=== PATIENT | female | born 1970 | race Caucasian/White ===

== ENCOUNTER 2016-07-11 09:23 | Emergency (ER) | payer OTHER ==
--- NOTE | 2016-07-11 09:34 | ED Physician Documentation ---
Low Back Pain - HISTORIAN Historian: patient - HPI Chief Complaint: Low Back Pain/ Injury History: history of chronic pain: Onset: hours Worsened By:: nothing Relieved By: nothing Further Comments: yes (45 year old female patient presents with back pain. Patient states she bent over at the kitchen table and felt sudden back pain. Took tylenol with no improvement. Denies fall, injury or heavy lifting.) - ROS CONST: no problems CVS/RESP: none EYES/ENT: none MS/SKIN/LYMPH: none Neuro/Psych: none GI/: denies: abdominal pain - PAST HX Past History: back pain Other History: diabetes Type 2, hypertension Allergies/Adverse Reactions: Allergies Allergy/AdvReac Type Severity Reaction Status Date / Time No Known Allergies Allergy Verified 07/11/16 09:38 Home Medications: Ambulatory Orders Medication Instructions Recorded Glimepiride [Glimepiride] 1 mg PO DAILY 08/22/15 Hydrochlorothiazide 25 mg PO DAILY 08/22/15 [Hydrochlorothiazide] Lisinopril [Prinivil] 10 mg PO DAILY 08/22/15 Metformin HCl [Glucophage XR] 1,000 mg PO BID 08/22/15 Nortriptyline HCl [Nortriptyline 10 mg PO TID 08/22/15 HCl] tiZANidine HCL [Zanaflex] 4 mg PO Q6 PRN 08/22/15 Baclofen [Lioresal] 10 mg PO QID PRN #30 tablet 07/11/16 Ketorolac Tromethamine [Toradol] 10 mg PO TID #15 tablet 07/11/16 - SOCIAL HX Smoking History: cigarettes - FAMILY HX Family History: none - VITAL SIGNS Vital Signs: Vital Signs Temp Pulse Resp BP Pulse Ox 98.1 F 102 H 18 116/88 96 07/11/16 09:31 07/11/16 09:51 07/11/16 09:51 07/11/16 09:51 07/11/16 09:51 - REVIEWED ASSESSMENTS Nursing Assessment Reviewed: Yes Vitals Reviewed: Yes ED Results Lab/Radiology - Orders Orders: ED Orders Category Date Time Status Ketorolac Tromethamine [Toradol] Med 07/11/16 09:40 Discontinued 60 mg IM NOW ONE Orphenadrine Citrate [Norflex] Med 07/11/16 09:40 Discontinued 60 mg IM NOW ONE Low Back Pain/Injury - Physical Exam General Appearance: mild distress EENT: eye inspection normal, KRIS Resp/CVS: chest non-tender, breath sounds nml, heart sounds nml, no resp. distress, lungs clear, reg. rate & rhythm Abdomen: non-tender, no organomegaly, no pulsatile mass Back: painless ROM, other (lumbar pain with palpation). No: vertebral point- tendernes Straight Leg Raising: Negative Left, Negative Right Neuro/Psych: oriented x3, motor nml, sensation nml, bilat. 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 You may use Tylenol every 4hour as needed for pain. Limit your dose to less than 4 G per day. Do not take ibuprofen, aleve, naproxen or any other NSAID while you are on toradol. You may want to try massage, biofreeze, sanford whitfield or aspercream community health nurse supervisor 2 prescriptions at the pharmacy today Home Medications: Ambulatory Orders Glimepiride [Glimepiride] 1 mg PO DAILY 08/22/15 Hydrochlorothiazide [Hydrochlorothiazide] 25 mg PO DAILY 08/22/15 Lisinopril [Prinivil] 10 mg PO DAILY 08/22/15 Metformin HCl [Glucophage XR] 1,000 mg PO BID 08/22/15 Nortriptyline HCl [Nortriptyline HCl] 10 mg PO TID 08/22/15 tiZANidine HCL [Zanaflex] 4 mg PO Q6 PRN 08/22/15 Baclofen [Lioresal] 10 mg PO QID PRN #30 tablet 07/11/16 Ketorolac Tromethamine [Toradol] 10 mg PO TID #15 tablet 07/11/16 Condition: Stable Disposition: 01 HOME, SELF-CARE Decision to Admit: NO Decision Time: 09:43
[2016-07-11 09:38] VITALS: BP 116/88
[2016-07-11] MEDS ORDERED: ORPHENADRINE CITRATE 60 MG/2ML IM ONE (09:40)
[2016-07-11] MEDS ORDERED: KETOROLAC TROMETHAMINE 60 MG/2 ML VIAL IM ONE (09:40)
== END 2016-07-11 09:51 | disposition home or self-care (01) ==
LOC: ED 09:23
DX: M54.5 Low back pain (principal)
CPT/HCPCS: 96372; 99283; J1885; J2360

== ENCOUNTER 2016-08-27 01:46 | Emergency (ER) | payer OTHER ==
--- NOTE | 2016-08-27 02:25 | ED Physician Documentation ---
General Adult - HISTORIAN Historian: patient - HPI Stated Complaint: cough, congestion Chief Complaint: General Adult Additional Information: Cough for hours. Has taken Mucinex. HX pneumonia or bronchitis nearly every year. Second hand smoke exposure. No fever. - ROS CONST: no problems - PAST HX Past History: none Surgeries/Procedures: other (endometrial ablation) Allergies/Adverse Reactions: Allergies Allergy/AdvReac Type Severity Reaction Status Date / Time No Known Allergies Allergy Verified 08/27/16 02:06 Home Medications: Ambulatory Orders Medication Instructions Recorded Glimepiride [Glimepiride] 1 mg PO DAILY 08/22/15 Lisinopril [Prinivil] 10 mg PO DAILY 08/22/15 Metformin HCl [Glucophage XR] 1,000 mg PO BID 08/22/15 Furosemide [Lasix] 20 mg PO DAILY 08/27/16 Hydroxyzine HCl [Atarax] 25 mg PO BID 08/27/16 predniSONE [Deltasone] 20 mg PO QD #5 tablet 08/27/16 - SOCIAL HX Smoking History: secondhand - FAMILY HX Family History: No (no signif) - VITAL SIGNS Vital Signs: Vital Signs Temp Pulse Resp BP Pulse Ox 118 H 20 112/75 95 08/27/16 02:00 08/27/16 02:00 08/27/16 02:00 08/27/16 02:00 - REVIEWED ASSESSMENTS Nursing Assessment Reviewed: Yes Vitals Reviewed: Yes Progress - Progress Progress: Chest - two views Clinical history: Cough for 2 days. Findings: Examination of the chest in PA and lateral views with no prior films for comparison demonstrates lungs to be clear. Cardiovascular and mediastinal silhouettes are within normal limits. The bony thorax is intact. Impression: 1. No active disease. Electronically signed on August 27, 2016 2:41:29 AM CDT by: Kyle Fallon ED Results Lab/Radiology - Orders Orders: ED Orders Category Date Time Status CHEST 2 VIEW [CHEST P.A.&LAT 2 VIEWS] [RAD] Stat Exams 08/27/16 Ordered General Adult Physical Exam - PHYSICAL EXAM GENERAL APPEARANCE: mild distress EENT: eye inspection normal, ENT inspection normal, pharynx normal, TM's nml NECK: normal inspection, supple RESPIRATORY: no resp distress, breath sounds normal CVS: reg rate & rhythm, heart sounds normal ABDOMEN: other (obese) BACK: normal inspection SKIN: warm/dry, normal color EXTREMITIES: no evidence of injury NEURO: CN's nml as tested, motor nml, sensation nml Discharge Clincal Impression: Acute bronchitis Qualifiers: Bronchitis organism: unspecified organism Qualified Code(s): J20.9 - Acute bronchitis, unspecified Prescriptions: predniSONE [Deltasone] 20 mg PO QD #5 tablet Referrals: Albino Sena [Primary Care Provider] - 2 Days Additional Instructions: Drink plenty of water. Avoid all smoke. Home Medications: Ambulatory Orders Glimepiride [Glimepiride] 1 mg PO DAILY 08/22/15 Lisinopril [Prinivil] 10 mg PO DAILY 08/22/15 Metformin HCl [Glucophage XR] 1,000 mg PO BID 08/22/15 Furosemide [Lasix] 20 mg PO DAILY 08/27/16 Hydroxyzine HCl [Atarax] 25 mg PO BID 08/27/16 predniSONE [Deltasone] 20 mg PO QD #5 tablet 08/27/16 Condition: Fair Disposition: 01 HOME, SELF-CARE Decision to Admit: NO Decision Time: 03:30
[2016-08-27] MEDS ORDERED: predniSONE 10 MG TABLET PO ONE (02:56)
[2016-08-27 03:12] VITALS: BP 121/84
--- NOTE | 2016-08-27 06:39 | Diagnostic Imaging Report ---
CHECO JOSHI - CLAIRE [facility] [address] [facility] [address] [address] Report Submission Date: August 27, 2016 2:41:29 AM CDT Patient Study Name: JANE SORENSEN Date: August 27, 2016 2:27:10 AM CDT Modality Type: CR Gender: F Description: CHEST : 68 Institution: [facility] Physician: CHECO JOSHI - CLAIRE Chest - two views Clinical history: Cough for 2 days. Findings: Examination of the chest in PA and lateral views with no prior films for comparison demonstrates lungs to be clear. Cardiovascular and mediastinal silhouettes are within normal limits. The bony thorax is intact. Impression: 1. No active disease. Electronically signed on August 27, 2016 2:41:29 AM CDT by: Kyle MOSLEY
== END 2016-08-27 03:00 | disposition home or self-care (01) ==
LOC: ED 01:46
DX: J20.9 Acute bronchitis, unspecified (principal)
CPT/HCPCS: 71020; J7512; 99283

== ENCOUNTER 2017-01-02 05:54 | Emergency (ER) | payer OTHER ==
[2017-01-02] MEDS ORDERED: 0.9 % SODIUM CHLORIDE 1,000 ML IV ONE (06:55)
[2017-01-02] MEDS: 0.9 % SODIUM CHLORIDE 1,000 ML IV ONE (06:59)
[2017-01-02] MEDS: ONDANSETRON HCL/PF 4 MG/ 2ML VIAL IVP ONE (07:00)
[2017-01-02 08:11] LABS: BASOPHILS % 1.4 (0.0-1.5); EOSINOPHILS % 1.9 % (0.0-6.8); MEAN CORPUSCULAR HEMOGLOBIN 28.6 pg (28.0-34.0); MEAN CORPUSCULAR VOLUME 85.9 fl (80.0-100.0); MONOCYTES % 5.2 % (0.0-11.0)
[2017-01-02 08:20] LABS: APPEARANCE,URINE Clear (CLEAR); COLOR,URINE Yellow (YELLOW); OCCULT BLOOD,URINE Negative (NEGATIVE); PH URINE 5.5 (5.0 - 8.0); UROBILINOGEN URINE 0.2 Eu (0.2-1.0)
[2017-01-02 08:22] LABS: eGFR (African) > 60; eGFR (Non-African) > 60
--- NOTE | 2017-01-02 08:44 | ED Physician Documentation ---
General Adult - HISTORIAN Historian: patient - HPI Stated Complaint: Nausea/Vomiting/Diarrhea Chief Complaint: General Adult Further Comments: yes (46 year old female patient presents with complaints of nausea, vomiting and diarrhea which started around 0300. Denies fever or abdominal pain.) - ROS CONST: no problems EYES/ENT: none CVS/RESP: none GI/: vomiting, nausea, diarrhea. denies: abdominal pain, problems urinating MS/SKIN/LYMPH: none NEURO/PSYCH: denies: headache, difficulty walking, difficulty with speech - PAST HX Past History: hypertension, renal disease Other History: diabetes Type 2 Surgeries/Procedures: other (nephrectomy) Allergies/Adverse Reactions: Allergies Allergy/AdvReac Type Severity Reaction Status Date / Time No Known Allergies Allergy Verified 01/02/17 06:09 Home Medications: Ambulatory Orders Medication Instructions Recorded Glimepiride [Glimepiride] 1 mg PO DAILY 08/22/15 Lisinopril [Prinivil] 10 mg PO DAILY 08/22/15 Metformin HCl [Glucophage XR] 1,000 mg PO BID 08/22/15 Furosemide [Lasix] 20 mg PO DAILY 08/27/16 Hydroxyzine HCl [Atarax] 25 mg PO BID 08/27/16 - SOCIAL HX Smoking History: non-smoker - FAMILY HX Family History: No - VITAL SIGNS Vital Signs: Vital Signs Temp Pulse Resp BP Pulse Ox 99 F 79 18 97/51 95 01/02/17 05:55 01/02/17 05:55 01/02/17 05:55 01/02/17 05:55 01/02/17 05:55 - REVIEWED ASSESSMENTS Nursing Assessment Reviewed: Yes Vitals Reviewed: Yes Progress - Progress Progress: Reviewed lab and xray findings with patient. Recommended clear liquid and ADAT. Rx for anti-nausa medication. UA - contaminated, cancel micro/culture ED Results Lab/Radiology - Lab Results Lab Results: Lab Results 01/02/17 01/02/17 07:03 07:03 WBC 7.60 K/ul K/ul (4.00-12.00) RBC 4.99 M/ul M/ul (3.90-5.20) Hgb 14.3 g/dL g/dL (12.0-16.0) Hct 42.9 % % (34.5-46.5) MCV 85.9 fl fl (80.0-100.0) MCH 28.6 pg pg (28.0-34.0) MCHC 33.3 g/dL g/dL (30.0-36.0) RDW 13.7 % % (11.3-14.3) Plt Count 310 K/mm3 K/mm3 (130-400) Neut % (Auto) 66.0 % % (39.0-79.0) Lymph % (Auto) 24.3 % % (16.0-50.0) Menard % (Auto) 5.2 % % (0.0-11.0) Eos % (Auto) 1.9 % % (0.0-6.8) Baso % (Auto) 1.4 (0.0-1.5) Neut # (Auto) 5.0 # k/uL # k/uL (1.4-7.7) Lymph # (Auto) 1.8 # k/uL # k/uL (0.6-4.0) Menard # (Auto) 0.4 # k/uL # k/uL (0.0-0.9) Eos # (Auto) 0.2 # k/uL # k/uL (0.0-0.6) Baso # (Auto) 0.1 # k/uL # k/uL (0.0-0.5) Reactive Lymphs % 1.2 % % (0.0-5.0) Reactive Lymphs # 0.1 # k/uL # k/uL (0.0-0.8) Sodium 135 mmol/L L mmol/L (136-145) Potassium 3.8 mmol/L mmol/L (3.5-5.0) Chloride 102 mmol/L mmol/L (98-110) Carbon Dioxide 26 mmol/L mmol/L (20-32) BUN 14 mg/dL mg/dL (10-26) Creatinine 0.6 mg/dL mg/dL (0.4-1.5) Estimated Creat Clear 279 Est GFR ( Amer) > 60 (60 - ) Est GFR (Non-Af Amer) > 60 (60 - ) Glucose 280 mg/dL H mg/dL (70-99) Calcium 9.4 mg/dL mg/dL (8.5-10.5) Total Bilirubin 0.9 mg/dL mg/dL (0.2-1.2) AST 18 U/L U/L (0-41) ALT 16 U/L U/L (0-45) Alkaline Phosphatase 123 U/L H U/L (46-116) Total Protein 7.5 g/dL g/dL (6.0-8.5) Albumin 4.4 g/dL g/dL (3.0-5.5) - Orders Orders: ED Orders Category Date Time Status Place IV Lock 1T Care 01/02/17 07:03 Active CBC/PLATELET/DIFF Stat Lab 01/02/17 07:03 Completed CMP Stat Lab 01/02/17 07:03 Completed UA W/MICRO IF INDICATED Stat Lab 01/02/17 07:03 Received 0.9 % Sodium Chloride [Normal Saline] 1,000 ml Med 01/02/17 06:55 Discontinued IV .STK-MED 0.9 % Sodium Chloride [Normal Saline] 1,000 ml Med 01/02/17 07:03 Discontinued IV NOW Ondansetron HCl/Pf [Zofran 4 mg/2 ml] Med 01/02/17 06:53 Discontinued 4 mg IVP NOW ONE General Adult Physical Exam - PHYSICAL EXAM GENERAL APPEARANCE: mild distress EENT: eye inspection normal, no signs of dehydration, KRIS RESPIRATORY: no resp distress, chest non-tender, breath sounds normal CVS: reg rate & rhythm, heart sounds normal, equal pulses, no murmur, no gallop , PMI nml, no JVD, no friction rub, 24 ABDOMEN: soft, no organomegaly, normal bowel sounds, no abdominal bruit, no distension, non-tender, other (morbid obesity). 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 NEURO: oriented X3, CN's nml as tested, motor nml, sensation nml, mood/affect nml Discharge Clincal Impression: Nausea & vomiting Qualifiers: Vomiting type: unspecified Vomiting Intractability: non-intractable Qualified Code(s): R11.2 - Nausea with vomiting, unspecified Referrals: Albino Sena [Primary Care Provider] - 2 Days Additional Instructions: Diet: Clear liquids Sprite/7-up Juices apple, white grape Gatorade/Powerade Jello Popsicles When tolerating clear liquids, advance to bland/brat diet - such as crackers, rice, Bananas, apples/applesauce or toast Return to the emergency department or call your doctor, if you are having severe abdominal pain, fever >101.0, or if there is blood in the vomit or diarrhea, or you cannot keep down liquids or solid food. Fever: Use Tylenol or Ibuprofen as needed per package directions Tylenol 500mg po q4h prn pain Ibuprofen 800mg po TID prn pain - do not take for more than 4 days. A prescription for nausea medication has been sent to the pharmacy. Condition: Stable Disposition: 01 HOME, SELF-CARE Decision to Admit: NO Decision Time: 08:43
[2017-01-02 09:10] VITALS: BP 112/75
== END 2017-01-02 09:07 | disposition home or self-care (01) ==
LOC: ED 05:54
DX: R11.2 Nausea with vomiting, unspecified (principal)
CPT/HCPCS: 80053; 81002; 85025; J2405; J7030; 96361; 96374; 99283; S1016

== ENCOUNTER 2017-07-16 13:27 | Emergency (ER) | payer OTHER ==
--- NOTE | 2017-07-16 13:58 | ED Physician Documentation ---
General Adult - HISTORIAN Historian: patient - HPI Chief Complaint: Dyspnea Additional Information: 2 day history of cough, occasional productive of some green phlegm, no blood noted. Has some rattling with coughing, no wheezing noted. No hsitory of astham/ COPD. Does have a sore throat. Having some clear nasal drainage. Has had a fever up to 101.2 Mild chills noted. Timing: still present - ROS CONST: fever, chills - PAST HX Past History: kidney stones Other History: diabetes Type 2 (BS in the mid 200 range, normal for patient) Surgeries/Procedures: , other (appendectomy, right nephrectomy due to kidney stones) Allergies/Adverse Reactions: Allergies Allergy/AdvReac Type Severity Reaction Status Date / Time No Known Allergies Allergy Verified 07/16/17 14:01 Home Medications: Ambulatory Orders Medication Instructions Recorded Metformin HCl [Glucophage XR] 1,000 mg PO BID 08/22/15 Furosemide [Lasix] 20 mg PO DAILY 08/27/16 Azithromycin [Zithromax] 250 mg PO DIRECTED #6 tablet 07/16/17 Benzonatate [Tessalon] 100 mg PO TID PRN #20 capsule 07/16/17 Insulin Lispro [Humalog Kwikpen 42 units SQ HS 07/16/17 U-100] - SOCIAL HX Smoking History: non-smoker Alcohol Use: none Drug Use: none - FAMILY HX Family History: No - VITAL SIGNS Vital Signs: Vital Signs Temp Pulse Resp BP Pulse Ox 112/75 01/02/17 09:08 - REVIEWED ASSESSMENTS Nursing Assessment Reviewed: Yes Vitals Reviewed: Yes Progress - Progress Progress: 1558 Patient states that she still feels SOB some. VS have been stable. D Dimer elevated. Will get CT scan to r/o PE. Will bolus with 500cc NS priro to giving dye to make sure she is well hydrated. BUN and Creatinine normal. ED Results Lab/Radiology - Radiology Radiology Impressions: Examination: PA and lateral chest. History: Evaluate lung dahl. DYSPNEA AND COUGH X 2 DAYS (Hx) Comparison exam: None provided. Findings: PA lateral chest demonstrate a normal cardiac and mediastinal silhouette. Mild interstitial fullness left lung base. No other focal infiltrate. No blunting of the costophrenic margins. Nonarticular degenerative changes. Impression: Likely left base parenchymal scarring. No acute appearing pulmonary process Examination: CT chest pulmonary embolism History: PE PROTOCAL; HX SHORTNESS OF BREATH, COUGH (Hx) Comparison exam: None provided Technique: CT chest pulmonic pulmonary embolism protocol. Findings: No evidence for luminal filling defect within the main pulmonary arteries to the 3rd order branch vessels bilaterally. Thoracic aorta without aneurysmal dilation. No evidence for dissection flap. Lungs demonstrate dependent atelectasis bilaterally. No evidence for posterior pleural effusion or thickening. No mediastinal or joann mass or pathologic adenopathy. Cardiac silhouette not enlarged. No pericardial effusion. Osseous structures demonstrate degenerative changes. Lower neck structures, axilla regions, and upper abdominal organs are without gross irregularity. Impression: No evidence for pulmonary embolism by CT criteria. No evidence for thoracic aortic dissection or abnormality. Lung base atelectasis. No focal consolidative process or effusion. General Adult Physical Exam - PHYSICAL EXAM GENERAL APPEARANCE: mild distress EENT: ENT inspection normal, pharynx normal, no signs of dehydration, TM's nml. No: pharyngeal erythema, exudate NECK: normal inspection, supple RESPIRATORY: no resp distress, chest non-tender, breath sounds normal, other ( no chest wall tenderness). No: wheezes, rales, rhonchi CVS: reg rate & rhythm, heart sounds normal, equal pulses, no murmur, no gallop ABDOMEN: soft, no organomegaly, normal bowel sounds BACK: normal inspection SKIN: warm/dry, normal color NEURO: oriented X3, mood/affect nml Discharge Clincal Impression: Bronchitis Prescriptions: Azithromycin [Zithromax] 250 mg PO DIRECTED #6 tablet Benzonatate [Tessalon] 100 mg PO TID PRN #20 capsule PRN Reason: Cough Referrals: Albino Sena [Primary Care Provider] - 2 Days Additional Instructions: Drink a lot of fluids over then next 24 hours. Take azithromycin and tessolon perles 2 - 3 times a day as needed for cough. If symptoms are not improving by the next 3 days to follow-up with your primary care provider or return to the ED. Condition: Stable Disposition: 01 HOME, SELF-CARE Decision to Admit: NO Date of Decison to Admit: 07/16/17 Decision Time: 17:30
[2017-07-16 14:39] LABS: BASOPHILS % 0.9 (0.0-1.5); EOSINOPHILS % 1.5 % (0.0-6.8); MEAN CORPUSCULAR VOLUME 88.7 fl (80.0-100.0); MONOCYTES % 7.8 % (0.0-11.0)
[2017-07-16 14:54] LABS: eGFR (African) > 60; eGFR (Non-African) > 60
--- NOTE | 2017-07-16 15:00 | Diagnostic Imaging Report ---
LUKASZ TRIPATHI [facility] [address] [facility].[address] [address] Report Submission Date: Jul 16, 2017 2:59:36 PM CDT Patient Study Name: JANE SORENSEN Date: Jul 16, 2017 2:35:44 PM CDT Modality Type: DX Gender: F Description: CHEST : 68 Institution: [facility] Physician: LUKASZ TRIPATHI Examination: PA and lateral chest. History: Evaluate lung dahl. DYSPNEA AND COUGH X 2 DAYS (Hx) Comparison exam: None provided. Findings: PA lateral chest demonstrate a normal cardiac and mediastinal silhouette. Mild interstitial fullness left lung base. No other focal infiltrate. No blunting of the costophrenic margins. Nonarticular degenerative changes. Impression: Likely left base parenchymal scarring. No acute appearing pulmonary process. Electronically signed on Jul 16, 2017 2:59:36 PM CDT by: James MOSLEY
[2017-07-16] MEDS ORDERED: 0.9 % SODIUM CHLORIDE 500 ML IV ONE (16:08)
[2017-07-16] MEDS ORDERED: 0.9 % SODIUM CHLORIDE 500 ML IV SCH (16:30)
--- NOTE | 2017-07-16 17:31 | Diagnostic Imaging Report ---
LUKASZ TRIPATHI [facility] [address] [facility] [address] [address] Report Submission Date: Jul 16, 2017 5:05:08 PM CDT Patient Study Name: JANE SORENSEN Date: Jul 16, 2017 4:33:43 PM CDT Modality Type: CT\SR Gender: F Description: CT CHEST W/ CONTRAST : 68 Institution: [facility] Physician: LUKASZ TRIPATHI Examination: CT chest pulmonary embolism History: PE PROTOCAL; HX SHORTNESS OF BREATH, COUGH (Hx) Comparison exam: None provided Technique: CT chest pulmonic pulmonary embolism protocol. Findings: No evidence for luminal filling defect within the main pulmonary arteries to the 3rd order branch vessels bilaterally. Thoracic aorta without aneurysmal dilation. No evidence for dissection flap. Lungs demonstrate dependent atelectasis bilaterally. No evidence for posterior pleural effusion or thickening. No mediastinal or joann mass or pathologic adenopathy. Cardiac silhouette not enlarged. No pericardial effusion. Osseous structures demonstrate degenerative changes. Lower neck structures, axilla regions, and upper abdominal organs are without gross irregularity. Impression: No evidence for pulmonary embolism by CT criteria. No evidence for thoracic aortic dissection or abnormality. Lung base atelectasis. No focal consolidative process or effusion. Electronically signed on Jul 16, 2017 5:05:08 PM CDT by: James MOSLEY
[2017-07-16 17:40] VITALS: BP 116/88
== END 2017-07-16 17:33 | disposition home or self-care (01) ==
LOC: ED 13:27
DX: J40 Bronchitis, not specified as acute or chronic (principal)
CPT/HCPCS: 71046; 71260; 80053; 85025; 85379; J7030; 96365; 99283; Q9967; S1016